=== PATIENT | male | born 1985 ===

== ENCOUNTER 2022-05-11 15:03 | Emergency (ER) | payer SELFPAY ==
[2022-05-11 15:28] VITALS: BP 120/75; PULSE 78; RESP 16; TEMP 36.8; O2SAT 98; BMI 24.5
--- NOTE | 2022-05-11 18:03 | W.ED.GENADLT ---
HPI - General Adult General: Chief complaint: Weakness Stated complaint: dizziness Time Seen by Provider: 05/11/22 17:48 History of Present Illness: Patient is a 36-year-old male with no significant past medical history presents to the emergency room for concerns of heat exhaustion. Patient was told to come to to the emergency room by his company for concerns of heat exhaustion. Patient tells me that 3 days ago he was in [place] celebrating with friends. However his car broke down and he was waiting for his car for the last 3 days. Patient reports decreased water intake and for the last 2 days has had weakness and fatigue. Earlier today, patient works at a [employer] and reports feeling fatigued and was told to come to the emergency room. Denies nausea/vomiting, fever/chill, chest pain, shortness of breath, abdominal pain, dysuria/hematuria/polyuria, diarrhea/melena/hematochezia. On arrival, patient tells me that he feels well right now. Patient tells me that he has been drinking water. Onset:4 days ago Duration:4 days Location:home Severity: moderate Associated symptoms: Reports malaise; Deny chest pain, dyspnea, nausea, rash, palpitations or vomiting Review of Systems Const: Reports: fatigue and malaise; Denies: fever(s) or chills Eyes: Denies: change in vision ENMT: Denies: mouth pain Card: Denies: chest pain or palpitations Resp: Denies: dyspnea or non-productive cough GI: Denies: abdominal pain, nausea, vomiting or diarrhea : Denies: dysuria Musc: Denies: extremity pain Skin/Breast: Denies: rash or new lesions Neuro: Denies: weakness in extremities Psych: Reports: other (Normal mood) Jed/Lymph: Denies: easy bruising PFSH ED PFSH: Medical History No pertinent past medical history Social History Smoking and tobacco status: current every day smoker Alcohol intake: current Substance/Drug Use: never Physical Exam Const: COMMON NORMALS: alert HENMT: COMMON NORMALS: atraumatic HEAD & SCALP: atraumatic MOUTH: moist mucous membranes not abnormal Eye: COMMON NORMALS: EOMs intact bilaterally and conjunctivae normal CONJUNCTIVA: Yes conjunctivae normal Neck/C-Spine: COMMON NORMALS: full ROM and supple Resp: COMMON NORMALS: normal respiratory effort and clear to auscultation bilaterally AUSCULTATION: clear to auscultation bilaterally Cardio: COMMON NORMALS: regular rate RATE: regular rate GI: COMMON NORMALS: Soft to palpation and non-tender PALPATION: Yes Soft to palpation Extremity: COMMON NORMALS: full ROM Neuro: SENSORIUM/ORIENTATION: Yes alert MOTOR EXAM: No Abnormal motor strength present and Other motor observations present (no focal motor deficits) Psych: COMMON NORMALS: speech normal SPEECH: Yes normal speech MOOD & AFFECT: Yes euthymic mood Course Vital Signs: Vital signs: Vital Signs Temperature 98.2 F 05/11/22 15:28 Pulse Rate 62 05/11/22 19:40 Respiratory Rate 17 05/11/22 19:40 Blood Pressure 120/75 05/11/22 15:28 Pulse Oximetry 100 05/11/22 19:40 [facility] - General Adult Medical Decision Making Patient is a 36-year-old male without any significant surgical history presents emergency room for concerns of heat cramps. On physical exam, patient is hemodynamically stable does not show any signs of dry mucous membrane. Patient received 2 L of fluids. Lab work-up did not show any signs of endorgan damage. Patient reports feeling symptomatically less fatigue. Patient elects to go home at this time. Disposition: Discharge. Patient counseled regarding diagnostic impression, treatment plan. Patient given ED strict return precautions to return for continuation, worsening, or development of new symptoms. Instructed to f/u w/ PCP regarding symptoms today. Patient verbalized understanding. Lab Data : 05/11/22 18:09 05/11/22 18:09 Laboratory Results WBC 10.6 10^3/uL (4.0-10.0) H 05/11/22 18:09 RBC 5.23 10^6/uL (4.1-5.3) 05/11/22 18:09 Hgb 14.4 g/dL (11.7-16.6) 05/11/22 18:09 Hct 44.5 % (42.0-52.0) 05/11/22 18:09 MCV 85.1 fl (80-94) 05/11/22 18:09 MCH 27.5 pg (28.0-34.0) L 05/11/22 18:09 MCHC 32.4 g/dL (30.0-36.0) 05/11/22 18:09 RDW 12.9 % (12.1-15.1) 05/11/22 18:09 Plt Count 199 10^3/cmm (130-400) 05/11/22 18:09 MPV 10.0 fL (7.4-10.4) 05/11/22 18:09 Neut % (Auto) 65.8 % 05/11/22 18:09 Lymph % (Auto) 24.9 % 05/11/22 18:09 [place] % (Auto) 8.3 % 05/11/22 18:09 Eos % (Auto) 0.1 % 05/11/22 18:09 Baso % (Auto) 0.6 % 05/11/22 18:09 Neut # (Auto) 6.94 10^3/uL (1.8-7.7) 05/11/22 18:09 Lymph # (Auto) 2.6 10^3/uL (0.8-4.8) 05/11/22 18:09 [place] # (Auto) 0.9 10^3/uL (0.2-0.9) 05/11/22 18:09 Eos # (Auto) 0.0 10^3/uL (0.0-0.8) 05/11/22 18:09 Baso # (Auto) 0.1 10^3/uL (0.0-0.1) 05/11/22 18:09 Nucleated RBC % (auto) 0 % 05/11/22 18:09 Nucleated RBCs # 0.0 /100WBC 05/11/22 18:09 Sodium 137 mmol/L (136-145) 05/11/22 18:09 Potassium 3.8 mmol/L (3.5-5.1) 05/11/22 18:09 Chloride 101 mmol/L (98-107) 05/11/22 18:09 Carbon Dioxide 27 mmol/L (22-29) 05/11/22 18:09 Anion Gap 12.8 (5-19) 05/11/22 18:09 BUN 15 mg/dL (6-20) 05/11/22 18:09 Creatinine 0.8 mg/dL (0.7-1.2) 05/11/22 18:09 GFR Calculation 110.0 mL/min (90-130) 05/11/22 18:09 Glucose 100 mg/dL (65-115) 05/11/22 18:09 Calculated Osmolality 285 mOsm/kg (285-295) 05/11/22 18:09 Calcium 8.6 mg/dL (8.5-10.5) 05/11/22 18:09 Total Bilirubin 0.5 mg/dL (0.15-1.2) 05/11/22 18:09 AST 34 U/L (0-40) 05/11/22 18:09 ALT 37 U/L (0-41) 05/11/22 18:09 Alkaline Phosphatase 88 IU/L (40-130) 05/11/22 18:09 Total Protein 6.9 g/dL (6.6-8.7) 05/11/22 18:09 Albumin 4.4 g/dL (3.5-5.2) 05/11/22 18:09 Globulin 2.5 g/dL (1.3-4.6) 05/11/22 18:09 Lipase 22 U/L (13-60) 05/11/22 18:09 Discharge Plan Discharge Patient Disposition: Home Clinical Impression: Fatigue, Cramp, heat Condition: Stable Discharge Orders: Discharge ED (Routine); Ordered 05/11/22 Ordered By: Erin Pereyra Discharge Diet: Advance as tolerated Discharge Activity: Increase activity as tolerated Patient Instructions: Heat Exhaustion (ED), Muscle Cramp (ED) Activity Restrictions/Additional Instructions: Please drink plenty of water. Come back to the emergency room have any new or concerning complaints. Stand Alone Forms: Work/School Release Coding Level of Care Code ED Vision Specialist for Kellyg Fwd Exam Comprehensive
[2022-05-11 18:17] LABS: Basophils # 0.1 10^3/uL (0.0-0.1); Basophils % 0.6 %; Eosinophils % 0.1 %; Hematocrit 44.5 % (42.0-52.0); Hemoglobin 14.4 g/dL (11.7-16.6); Lymphocytes # 2.6 10^3/uL (0.8-4.8); Lymphocytes % 24.9 %; Mean Corpuscular HGB Conc 32.4 g/dL (30.0-36.0); Mean Corpuscular Hemoglobin 27.5 pg (28.0-34.0); Mean Corpuscular Volume 85.1 fl (80-94); Monocytes # 0.9 10^3/uL (0.2-0.9); Monocytes % 8.3 %; Neutrophils # 6.94 10^3/uL (1.8-7.7); Neutrophils % 65.8 %; Nucleated Red Blood Cells % 0 %; Platelet Count 199 10^3/cmm (130-400); Red Blood Count 5.23 10^6/uL (4.1-5.3); Red Cell Distribution Width 12.9 % (12.1-15.1); White Blood Count 10.6 10^3/uL (4.0-10.0)
[2022-05-11] MEDS: sodium chloride 0.9% 1,000 ML 999 ML IV ×2 (18:23→18:57)
[2022-05-11 18:38] VITALS: PULSE 62; RESP 17; O2SAT 100
[2022-05-11 18:44] LABS: Alanine Aminotransferase 37 U/L (0-41); Albumin Level 4.4 g/dL (3.5-5.2); Alkaline Phosphatase 88 IU/L (40-130); Anion Gap 12.8 (5-19); Aspartate Amino Transferase 34 U/L (0-40); Blood Urea Nitrogen 15 mg/dL (6-20); Calcium 8.6 mg/dL (8.5-10.5); Carbon Dioxide 27 mmol/L (22-29); Chloride 101 mmol/L (98-107); Globulin 2.5 g/dL (1.3-4.6); Glucose 100 mg/dL (65-115); Lipase 22 U/L (13-60); Osmolality Calculated 285 mOsm/kg (285-295); Potassium 3.8 mmol/L (3.5-5.1); Sodium 137 mmol/L (136-145); Total Bilirubin 0.5 mg/dL (0.15-1.2); Total Protein 6.9 g/dL (6.6-8.7)
[2022-05-11 19:40] VITALS: PULSE 62; RESP 17; O2SAT 100
== END 2022-05-11 19:43 | disposition home or self-care (01) ==
PROVIDERS: Emergency Provider Emergency Medicine
DX: T67.2XXA Heat cramp, initial encounter (principal); X30.XXXA Exposure to excessive natural heat, initial encounter; R53.83 Other fatigue; F17.210 Nicotine dependence, cigarettes, uncomplicated
CPT/HCPCS: 80053; 83690; 85025; 96360; 99284; J7030

== ENCOUNTER 2025-06-11 12:50 | Emergency (ER) | payer OTHER, SELFPAY ==
--- NOTE | 2025-06-11 12:53 | W.ED.PSYCHS ---
HPI - Psych General: Chief Complaint: Psychiatric Symptoms Stated Complaint: 96 Hold Time Seen by Provider: 06/11/25 12:51 Source: patient Mode of arrival: ambulatory Limitations: no limitations History of Present Illness: 39-year-old male who states that he became upset today and had made suicidal statements in front of police. He states that he had his kids taken away from he is very upset and was depressed and did admit that he stated that he wanted to kill himself. He has previous psych history denies any worse improving factors. Associated symptoms: Reports depression and suicidal ideation Related Data Home Medications ?Medication ?Instructions ?Recorded ?Confirmed No Known Home Medications 06/11/25 06/11/25 Allergies Allergy/AdvReac Type Severity Reaction Status Date / Time No Known Allergies Allergy Verified 05/11/22 15:32 Review of Systems Const: Denies: fever(s), chills, body aches or change in appetite Eyes: Denies: blurry vision or eye discomfort ENMT: Denies: throat pain or dental pain Card: Denies: chest pain Resp: Denies: dyspnea GI: Denies: abdominal pain, nausea, vomiting or diarrhea Musc: Denies: neck pain or back pain Skin/Breast: Denies: rash Neuro: Denies: headache(s) Psych: Reports: depression and suicidal ideation [facility] ED PFSH: Medical History No pertinent past medical history Social History Smoking and tobacco/nicotine status: current every day tobacco/nicotine user Alcohol intake: current Substance/Drug Use: never Physical Exam Const: COMMON NORMALS: no acute distress, patient oriented x3 and healthy appearing HENMT: COMMON NORMALS: normocephalic and atraumatic HEAD & SCALP: normocephalic and atraumatic Eye: COMMON NORMALS: conjunctivae normal CONJUNCTIVA: Yes conjunctivae normal Neck/C-Spine: COMMON NORMALS: full ROM and supple Chest: COMMONS NORMALS: normal inspection of the chest Resp: COMMON NORMALS: normal respiratory effort Cardio: COMMON NORMALS: regular rate, regular rhythm and No murmurs present (Cardio) RATE: regular rate RHYTHM: regular rhythm GI: COMMON NORMALS: Normal to inspection, nondistended, normoactive bowel sounds present, Soft to palpation, non-tender and no masses PALPATION: Yes Soft to palpation Extremity: COMMON NORMALS: normal to inspection and full ROM Neuro: COMMON NORMALS: patient oriented x3, moves all extremities and no focal motor deficits Psych: COMMON NORMALS: mental status grossly normal, Normal thought process present and cooperative MOOD & AFFECT: Yes depressed mood THOUGHT PROCESS: Normal thought process present THOUGHT CONTENT: Yes Suicidality present Skin: COMMON NORMALS: no rashes or lesions noted and no wounds GENERAL SKIN EXAM: no rashes or lesions noted Course Vital Signs: Vital signs: Vital Signs Temperature 98.4 F 06/11/25 12:58 Pulse Rate 74 06/11/25 21:16 Respiratory Rate 18 06/11/25 12:58 Blood Pressure 109/76 06/11/25 21:16 Pulse Oximetry 97 06/11/25 21:16 Oxygen Delivery Me thod Room Air 06/11/25 21:16 [facility] - Psych Medical Decision Making Patient presents for suicidal ideation under 96-hour hold patient's care transferred to Dr. Holliday have to transfer patient due to his being in the psych agarwal here he has been stable here and medically Medical Records I reviewed the patient's medical records. Lab Data I reviewed the patient's lab results. 06/11/25 13:07 06/11/25 13:07 Laboratory Results WBC 11.89 10^3/uL (3.29-11.43) H 06/11/25 13:07 RBC 5.36 10^6/uL (3.85-5.65) 06/11/25 13:07 Hgb 15.00 g/dL (11.27-16.99) 06/11/25 13:07 Hct 44.9 % (37-53) 06/11/25 13:07 MCV 83.8 fl (82-101) 06/11/25 13:07 MCH 28.0 pg (27-33) 06/11/25 13:07 MCHC 33.4 g/dL (30-55) 06/11/25 13:07 RDW 12.9 % (12.1-15.1) 06/11/25 13:07 Plt Count 221 10^3/cmm (157-399) 06/11/25 13:07 MPV 9.9 fL (7.4-10.4) 06/11/25 13:07 Neut % (Auto) 80.4 % 06/11/25 13:07 Lymph % (Auto) 11.9 % 06/11/25 13:07 [place] % (Auto) 6.7 % 06/11/25 13:07 Eos % (Auto) 0.1 % 06/11/25 13:07 Baso % (Auto) 0.6 % 06/11/25 13:07 Neut # (Auto) 9.56 10^3/uL (1.8-7.7) H 06/11/25 13:07 Lymph # (Auto) 1.4 10^3/uL (0.8-4.8) 06/11/25 13:07 [place] # (Auto) 0.8 10^3/uL (0.2-0.9) 06/11/25 13:07 Eos # (Auto) 0.0 10^3/uL (0.0-0.8) 06/11/25 13:07 Baso # (Auto) 0.1 10^3/uL (0.0-0.1) 06/11/25 13:07 Nucleated RBC % (auto) 0 % 06/11/25 13:07 Nucleated RBCs # 0.0 /100WBC 06/11/25 13:07 Sodium 136 mmol/L (136-145) 06/11/25 13:07 Potassium 3.9 mmol/L (3.5-5.1) 06/11/25 13:07 Chloride 102 mmol/L (98-107) 06/11/25 13:07 Carbon Dioxide 23 mmol/L (22-29) 06/11/25 13:07 Anion Gap 14.9 (5-19) 06/11/25 13:07 BUN 16 mg/dL (6-20) 06/11/25 13:07 Creatinine 0.8 mg/dL (0.7-1.2) 06/11/25 13:07 GFR Calculation 108.2 mL/min (90-130) 06/11/25 13:07 Glucose 96 mg/dL (65-115) 06/11/25 13:07 Calculated Osmolality 283 mOsm/kg (285-295) L 06/11/25 13:07 Calcium 8.9 mg/dL (8.5-10.5) 06/11/25 13:07 Total Bilirubin 0.7 mg/dL (0.15-1.2) 06/11/25 13:07 AST 20 U/L (0-40) 06/11/25 13:07 ALT 20 U/L (0-41) 06/11/25 13:07 Alkaline Phosphatase 95 U/L (40-130) 06/11/25 13:07 Total Protein 7.1 g/dL (6.6-8.7) 06/11/25 13:07 Albumin 4.3 g/dL (3.5-5.2) 06/11/25 13:07 Globulin 2.8 g/dL (1.3-4.6) 06/11/25 13:07 Salicylates < 0.3 mg/dL (3-10) L 06/11/25 13:07 Urine Opiates Screen Negative ng/mL (Negative) 06/11/25 13:20 Acetaminophen < 5.0 ug/mL (10-30) L 06/11/25 13:07 Ur Barbiturates Screen Negative ng/mL (Negative) 06/11/25 13:20 Ur Phencyclidine Scrn Negative ng/mL (Negative) 06/11/25 13:20 Ur Amphetamines Screen Positive ng/mL (Negative) H 06/11/25 13:20 U Benzodiazepines Scrn Negative ng/mL (Negative) 06/11/25 13:20 Urine Cocaine Screen Negative ng/mL (Negative) 06/11/25 13:20 U Marijuana (THC) Screen Positive ng/mL (Negative) H 06/11/25 13:20 Ethyl Alcohol < 10 mg/dL (0-10) 06/11/25 13:07 Influenza A (PCR) Negative (Negative) 06/11/25 13:36 Influenza Type B (PCR) Negative (Negative) 06/11/25 13:36 RSV (PCR) Negative (Negative) 06/11/25 13:36 SARS-CoV-2 (PCR) Negative (Negative) 06/11/25 13:36 All radiology interpretation(s) finalized by discharge EKG Data EKG 1: I personally reviewed and interpreted this EKG as follows: EKG interpretation date: 06/11/25 EKG interpretation time: 13:51 Interpretation: nsr hr [address] elevation qrs 91 qtc 392 Discharge Plan Discharge Patient Disposition: Xfer Short-Term Hosp Clinical Impression: Suicidal ideation Condition: Stable Print Language: Tamazight Coding Level of Care Code ED Tie Inspector for Anshul Ramos
[2025-06-11 12:58] VITALS: BP 122/83; PULSE 80; RESP 18; TEMP 36.9; O2SAT 98
[2025-06-11 13:13] LABS: Hematocrit 44.9 % (37-53); Hemoglobin 15.00 g/dL (11.27-16.99); Mean Corpuscular HGB Conc 33.4 g/dL (30-55); Mean Corpuscular Hemoglobin 28.0 pg (27-33); Mean Corpuscular Volume 83.8 fl (82-101); Nucleated Red Blood Cells % 0 %; Platelet Count 221 10^3/cmm (157-399); Red Blood Count 5.36 10^6/uL (3.85-5.65); White Blood Count 11.89 10^3/uL (3.29-11.43)
--- NOTE | 2025-06-11 13:21 | ECG_ITS ---
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 Measurements Intervals [place] Rate: 70 P: 74 CT: 150 QRS: 85 QRSD: 91 T: 62 QT: 371 QTc: 401 Interpretive Statements SINUS RHYTHM INCOMPLETE RIGHT BUNDLE BRANCH BLOCK [90+ ms QRS DURATION, TERMINAL R IN V1/V2, 40+ ms S IN I/aVL/V4/V5/V6] No previous ECG available for comparison Electronically Signed On 06-14-2025 08:52:09 CDT by Rolando Lindsay M.D. [email or web address]
--- NOTE | 2025-06-11 13:26 | PC.NURSE ---
Involuntary 96 hour hold rights read and reviewed with patient. Patient verbalized understandings and copy of rights given to patient.
[2025-06-11 13:29] LABS: Alanine Aminotransferase 20 U/L (0-41); Albumin Level 4.3 g/dL (3.5-5.2); Alkaline Phosphatase 95 U/L (40-130); Anion Gap 14.9 (5-19); Aspartate Amino Transferase 20 U/L (0-40); Blood Urea Nitrogen 16 mg/dL (6-20); Calcium 8.9 mg/dL (8.5-10.5); Carbon Dioxide 23 mmol/L (22-29); Chloride 102 mmol/L (98-107); Creatinine Clr Calc Pharmacy 124.8515; Globulin 2.8 g/dL (1.3-4.6); Glucose 96 mg/dL (65-115); Osmolality Calculated 283 mOsm/kg (285-295); Potassium 3.9 mmol/L (3.5-5.1); Sodium 136 mmol/L (136-145); Total Protein 7.1 g/dL (6.6-8.7)
[2025-06-11 13:33] LABS: Acetaminophen < 5.0 ug/mL (10-30); Alcohol Level < 10 mg/dL (0-10); Salicylate < 0.3 mg/dL (3-10)
[2025-06-11 13:42] LABS: PCP Screen Urine Negative (Negative)
[2025-06-11 14:25] LABS: Respiratory Syncytial Virus Ce NEGATIVE (Negative); SARS-CoV-2 PCR NEGATIVE (Negative)
[2025-06-11 21:16] VITALS: BP 109/76; PULSE 74; O2SAT 97
[2025-06-12 02:09] VITALS: BP 120/82; PULSE 83; O2SAT 98
[2025-06-12 07:11] VITALS: PULSE 80; RESP 18; O2SAT 99
[2025-06-12 13:39] VITALS: BP 115/73; PULSE 68; RESP 18; O2SAT 97
== END 2025-06-12 16:08 | disposition short-term general hospital (02) ==
PROVIDERS: Emergency Provider Emergency Medicine
DX: R45.851 Suicidal ideations (principal); Z11.52 Encounter for screening for COVID-19; Z72.0 Tobacco use
CPT/HCPCS: 36415; 80053; 80306; 80307; 85025; 87637; 93005; 99285

== ENCOUNTER 2025-07-11 17:04 | Emergency (ER) | payer OTHER, SELFPAY ==
[2025-07-11 17:34] VITALS: BP 139/88; PULSE 84; RESP 16; TEMP 36.9; O2SAT 98
--- NOTE | 2025-07-11 18:01 | ED_ITS ---
HPI - Dental/Oral 2 General: Chief complaint: Dental/Oral Stated complaint: L side face pain swelling Pain behind eyes Time Seen by Provider: 07/11/25 17:18 Source: patient Mode of arrival: ambulatory Limitations: no limitations History of Present Illness: Patient is a 39-year-old male presents to ED today with complaint of left-sided dental pain and facial swelling over the past several days. Patient states he knows he has bad teeth but cannot afford to see a dentist. Patient states he is not having any trouble swallowing or trouble breathing. No fevers. MD Complaint: tooth pain Onset (ago): day(s) Duration: constant Severity: moderate Relieving factors: nothing Exacerbating factors: nothing Context: history of dental caries and poor dental care Associated symptoms: Reports ear or mastoid pain; Denies fever(s) or odynophagia Treatment prior to arrival: none Related Data Previous Rx's ?Medication ?Instructions ?Recorded amoxicillin 500 mg capsule 500 mg PO TID 7 days #21 ca ps 07/11/25 Allergies Allergy/AdvReac Type Severity Reaction Status Date / Time No Known Allergies Allergy Verified 07/11/25 17:38 Review of Systems 2 Const: Denies: fever(s), chills, body aches, fatigue or malaise Eyes: Denies: change in vision, blurry vision, photophobia, floaters or seeing flashes ENMT: Reports: ear or mastoid pain and sinus pain; Denies: throat pain, odynophagia, oral sores, ear discharge, change in hearing, nasal discharge or nasal congestion Card: Denies: chest pain Resp: Denies: dyspnea GI: Denies: abdominal pain, nausea, vomiting or change in bowel habits Musc: Denies: neck pain Neuro: Denies: headache(s) PFSH ED 2 PFSH: Medical History Psychiatric care No pertinent past medical history Social History Smoking and tobacco/nicotine status: current every day tobacco/nicotine user Alcohol intake: current Substance/Drug Use: never Physical Exam 2 Const: COMMON NORMALS: no acute distress, average body habitus, no limitations, healthy appearing, alert and well nourished GENERAL APPEARANCE: cooperative HENMT: COMMON NORMALS: external ears normal, EAC's normal and TM's normal bilaterally FACE & SINUS: edema (no cellulitis/fluctuance) on the left E XTERNAL EAR: Yes external ears normal, Yes mastoids normal and Yes no periauricular adenopathy EXTERNAL AUDITORY CANAL: EAC's normal TYMPANIC MEMBRANE: TM's normal bilaterally MOUTH: Normal oral and palatal mucosa present, lip normal, tongue normal and Normal salivary glands and ducts present TEETH & GINGIVA: Yes caries and Yes poor dentition TEETH & GINGIVA IMAGES: 1. gingival swelling THROAT: posterior oropharynx normal and tonsils normal Eye: GENERAL EYE: appearance normal, both eyes and all related structures and normal light reflex DIRECT OPHTHALMOSCOPY: Yes normal light reflex Neck/C-Spine: COMMON NORMALS: full ROM GENERAL: Yes normal visual inspection, No anterior neck swelling and No submandibular swelling Resp: COMMON NORMALS: normal respiratory effort and clear to auscultation bilaterally AUSCULTATION: clear to auscultation bilaterally Cardio: COMMON NORMALS: regular rate and regular rhythm RATE: regular rate RHYTHM: regular rhythm Neuro: SENSORIUM/ORIENTATION: Yes alert Course 2 Vital Signs: Vital signs: Vital Signs Temperature 98.5 F 07/11/25 17:34 Pulse Rate 84 07/11/25 17:34 Respiratory Rate 16 07/11/25 17:34 Blood Pressure 139/88 07/11/25 17:34 Pulse Oximetry 98 07/11/25 17:34 MDM - Dental/Oral Medical Decision Making I do not appreciate any obvious drainable abscess. Patient was given IM antibiotics prior to discharge. He states he cannot afford a prescription as he has no money. We did try to contact inpatient pharmacy and they are not able to dispense any significant amount of medications. We did contact the pharmacist who stated they are not able to bill prescriptions to an ED visit any longer. I printed a [employer] coupon for Amoxicillin and gave patient money to fill his RX tomorrow at [facility]. Return precautions discussed. Differential Diagnosis Likely gingival abscess, dental caries, toothache and dental abscess No radiology studies performed this visit Discharge Plan Discharge Patient Disposition: Home Clinical Impression: Dental abscess, Dental caries Condition: Stable Prescriptions: New amoxicillin 500 mg capsule 500 mg PO TID 7 Days Qty: 21 0RF Discharge Orders: Discharge ED (Routine); Ordered 07/11/25 Ordered By: Kimberly Flynn Patient Instructions: Dental Caries (Cavities), Patient Portal & Wesley Instructions, Dental Abscess Print Language: Setswana Coding Level of Care Code ED Sorter Pricer for Anshul Ramos
[2025-07-11] MEDS: Clindamycin 150 MG/ML SDV 2mL 600 MG IM (18:34)
== END 2025-07-11 18:44 | disposition home or self-care (01) ==
PROVIDERS: Emergency Provider Physician Assistant
DX: K04.7 Periapical abscess without sinus (principal); K02.9 Dental caries, unspecified; Z72.0 Tobacco use
CPT/HCPCS: 99284; J0736

== ENCOUNTER 2025-08-15 12:56 | Outpatient (CLI) | payer OTHER, BC, MEDICAID, SELFPAY ==
--- NOTE | 2025-08-15 13:08 | XR_ITS ---
WS: [id number] Chest 2 views, 08/15/2025 Clinical Data: A15.8 Comparison: None. Findings: No nodules, masses or effusions are seen. The heart is normal. The pulmonary vascularity is not increased. No pneumonia or pneumothorax is seen. There is minimal atelectasis in the lingula of the left upper lobe. XR/XR chest 2V* [id number] Impression: Negative chest.
== END 2025-08-15 12:57 | disposition home or self-care (01) ==
LOC: RAD 13:01
PROVIDERS: Visit Provider Internal Medicine
DX: A15.8 Other respiratory tuberculosis (principal)
CPT/HCPCS: 71046

== ENCOUNTER 2025-09-10 16:07 | Emergency (ER) | payer OTHER, BC, MEDICAID, SELFPAY ==
--- NOTE | 2025-09-10 16:09 | XRR_ITS ---
PROCEDURE INFORMATION: Exam: XR Chest Exam date and time: 09/10/2025 4:54 PM Age: 39 years old Clinical indication: Other: Weakness TECHNIQUE: Imaging protocol: Radiologic exam of the chest. Views: 1 view. COMPARISON: CR XR chest 2V* [id number] 08/15/2025 1:23 PM FINDINGS: Lungs: Unremarkable. No consolidation. Pleural spaces: Unremarkable. No pleural effusion. No pneumothorax. Heart/Mediastinum: Unremarkable. No cardiomegaly. Bones/joints: Unremarkable. XR/XR chest 1V portable [id number] IMPRESSION: No acute findings.
[2025-09-10 16:11] VITALS: BP 150/88; PULSE 83; RESP 15; TEMP 36.7; O2SAT 98; BMI 30.3
[2025-09-10 17:32] LABS: Hematocrit 45.8 % (37-53); Hemoglobin 15.00 g/dL (11.27-16.99); Mean Corpuscular HGB Conc 32.8 g/dL (30-55); Mean Corpuscular Hemoglobin 27.5 pg (27-33); Mean Corpuscular Volume 83.9 fl (82-101); Nucleated Red Blood Cells % 0 %; Platelet Count 243 10^3/cmm (157-399); Red Blood Count 5.46 10^6/uL (3.85-5.65); White Blood Count 9.60 10^3/uL (3.29-11.43)
[2025-09-10 18:20] LABS: Alanine Aminotransferase 37 U/L (0-41); Albumin Level 4.4 g/dL (3.5-5.2); Alkaline Phosphatase 107 U/L (40-130); Anion Gap 15.2 (5-19); Aspartate Amino Transferase 28 U/L (0-40); Blood Urea Nitrogen 17 mg/dL (6-20); Calcium 9.1 mg/dL (8.5-10.5); Carbon Dioxide 24 mmol/L (22-29); Chloride 106 mmol/L (98-107); Globulin 3.1 g/dL (1.3-4.6); Glucose 91 mg/dL (65-115); Magnesium 2.3 mg/dL (1.7-2.3); Osmolality Calculated 293 mOsm/kg (285-295); Potassium 4.2 mmol/L (3.5-5.1); Sodium 141 mmol/L (136-145); Thyroid Stimulating Hormone 1.20 uIU/mL (0.27-4.20); Total Protein 7.5 g/dL (6.6-8.7)
--- NOTE | 2025-09-10 18:23 | CTR_ITS ---
PROCEDURE INFORMATION: Exam: CT Head Without Contrast Exam date and time: 09/10/2025 6:27 PM Age: 39 years old Clinical indication: Dizziness; Additional info: Dizzy, headache TECHNIQUE: Imaging protocol: Computed tomography of the head without contrast. Radiation optimization: All CT scans at this facility use at least one of these dose optimization techniques: automated exposure control; mA and/or kV adjustment per patient size (includes targeted exams where dose is matched to clinical indication); or iterative reconstruction. COMPARISON: No relevant prior studies available. RADIATION DOSE METRICS: Total DLP (mGy-cm): 1130.1 FINDINGS: Brain: No acute hemorrhage, edema, or mass effect. Cerebral ventricles: No hydrocephalus. Paranasal sinuses: Trace fluid/mucosal thickening right sphenoid sinus. The remaining visualized paranasal sinuses are clear. Mastoid air cells: Visualized mastoid air cells are well aerated. Bones: Unremarkable. No acute fracture. Soft tissues: Unremarkable. CT/CT head wo con* [id number] IMPRESSION: No acute hemorrhage, edema, or mass effect.
--- NOTE | 2025-09-10 18:24 | ECG_ITS ---
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 Measurements Intervals [place] Rate: 59 P: 62 IN: 166 QRS: 65 QRSD: 100 T: 55 QT: 371 QTc: 368 Interpretive Statements SINUS BRADYCARDIA INCOMPLETE RIGHT BUNDLE BRANCH BLOCK [90+ ms QRS DURATION, TERMINAL R IN V1/V2, 40+ ms S IN I/aVL/V4/V5/V6] TYPE 3 BRUGADA PATTERN (NON-DIAGNOSTIC) [COVED/SADDLEBACK ST ELEVATION > 0.1mV IN 2 OF V1-3] Compared to ECG 06/11/2025 13:51:43 ST (T wave) deviation now present Sinus rhythm no longer present Electronically Signed On 09-10-2025 23:52:29 EXTRACTIONS TECHNICIAN by Altaf Yadav M.D. [id number]
[2025-09-10 19:15] LABS: Glucose Urine UA Negative (Normal); Nitrate Urine Negative (Negative); Specific Gravity, Urine 1.013 (1.005-1.030)
[2025-09-10 19:20] LABS: Add Urine Microscopic? YES
--- NOTE | 2025-09-10 21:20 | W.ED.DIZZY ---
HPI - Dizziness General: Chief Complaint: Dizziness Stated Complaint: Dizzy Tired Time Seen by Provider: 09/10/25 18:15 Source: patient Mode of arrival: ambulatory Limitations: no limitations History of Present Illness: HPI Narrative: Patient is a 39-year-old male presents emergency department complaining of dizziness for the past week or so. Notes that this began after he started Vivitrol, as he recently got out of rehab. Also notes that he had a change to olanzapine recently, and takes other psychiatric medications. States that the symptoms are worse in the morning, and compares it to feeling hung over or that the room is spinning. Denies history of vertigo. No headaches, focal neurological deficit, visual changes, ear pain, fevers, nausea/vomiting, or any other symptoms at this time. His vitals are stable. MD elicited complaint: dizziness Onset (ago): day(s) Description: room spinning and other ( Hung over ) Context: change in medication and other (Worse in the morning) Associated symptoms: Denies chest pain, chills, headache(s), nausea, palpitations or vomiting Associated neuro symptoms: Deny numbness in extremities Related Data Previous Rx's ?Medication ?Instructions ?Recorded hydroxyzine HCl 25 mg tablet 50 mg (2 x 25 mg) PO .HS PRN 07/23/25 insomnia #60 tabs olanzapine 5 mg tablet 5 mg PO BID #60 tabs 07/23/25 Allergies Allergy/AdvReac Type Severity Reaction Status Date / Time No Known Allergies Allergy Verified 07/23/25 15:55 Review of Systems General: Reports: 10 or more systems reviewed and unremarkable except in HPI and below Const: Denies: fever(s), chills or fatigue Eyes: Denies: change in vision ENMT: Denies: throat pain, ear or mastoid pain or nasal discharge Card: Denies: chest pain, palpitations, swelling of feet/ankles or lightheadedness Resp: Denies: dyspnea, productive cough or wheezing GI: Denies: abdominal pain, nausea, vomiting, diarrhea or constipation : Denies: flank pain, difficulty urinating, dysuria or urinary frequency Musc: Denies: neck pain, back pain or joint pain Skin/Breast: Denies: rash Neuro: Reports: dizziness; Denies: headache(s), numbness in extremities or weakness in extremities PFS ED PFSH: Medical History Psychiatric care No pertinent past medical history Social History Smoking and tobacco/nicotine status: current every day tobacco/nicotine user Alcohol intake: current Substance/Drug Use: never Physical Exam Const: COMMON NORMALS: no acute distress, patient oriented x3 and no limitations GENERAL APPEARANCE: cooperative, comfortable and well developed ORIENTATION/CONSCIOUSNESS: Yes awake, Yes oriented to person, Yes oriented to place and Yes oriented to time HENMT: COMMON NORMALS: normocephalic, atraumatic and hearing grossly normal bilaterally HEAD & SCALP: normocephalic and atraumatic Eye: COMMON NORMALS: Equal, round and reactive pupils present, EOMs intact bilaterally and conjunctivae normal CONJUNCTIVA: Yes conjunctivae normal PUPIL: Yes Equal, round and reactive pupils present Neck/C-Spine: COMMON NORMALS: full ROM, supple and no JVD Resp: COMMON NORMALS: normal respiratory effort, No retractions, No use of accessory muscles and clear to auscultation bilaterally AUSCULTATION: clear to auscultation bilaterally Cardio: COMMON NORMALS: no JVD, regular rate, regular rhythm, No clicks present (Cardio), No murmurs present (Cardio) and No rub (Cardio) RATE: regular rate RHYTHM: regular rhythm Extremity: COMMON NORMALS: normal to inspection, full ROM and capillary refill normal Neuro: COMMON NORMALS: patient oriented x3, CN's II-XII intact bilaterally, moves all extremities, no focal motor deficits and no sensory deficits noted SENSORIUM/ORIENTATION: Yes oriented to person, Yes oriented to place and Yes oriented to time Skin: COMMON NORMALS: no rashes or lesions noted GENERAL SKIN EXAM: no rashes or lesions noted Course Vital Signs: Vital signs: Vital Signs Temperature 98.0 F 09/10/25 16:11 Pulse Rate 83 09/10/25 16:11 Respiratory Rate 15 09/10/25 16:11 Blood Pressure 150/88 09/10/25 16:11 Pulse Oximetry 98 09/10/25 16:11 Oxygen Delivery Me thod Room Air 09/10/25 16:11 MDM - Dizziness Medical Decision Making Patient presented with dizziness has been going on since he began Vivitrol, after being released from rehab. He had reported that the dizziness felt like being hung over or that the room was spinning, though denies any history of vertigo and has no ear pain. No neurological deficits on exam. His lab work is all reassuring, head CT negative, chest x-ray negative, EKG unremarkable. 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 Overall stable for discharge home he is to follow-up with his prescriber to discuss his medications and any changes that need to be made, and told to return with any new or worsening. Lab Data 09/10/25 17:19 09/10/25 17:19 Radiology Impressions Chest X-Ray 09/10/25 16:09 IMPRESSION: No acute findings. Head CT 09/10/25 18:23 IMPRESSION: No acute hemorrhage, edema, or mass effect. Laboratory Results WBC 9.60 10^3/uL (3.29-11.43) 09/10/25 17:19 RBC 5.46 10^6/uL (3.85-5.65) 09/10/25 17:19 Hgb 15.00 g/dL (11.27-16.99) 09/10/25 17:19 Hct 45.8 % (37-53) 09/10/25 17:19 MCV 83.9 fl (82-101) 09/10/25 17:19 MCH 27.5 pg (27-33) 09/10/25 17:19 MCHC 32.8 g/dL (30-55) 09/10/25 17:19 RDW 13.2 % (12.1-15.1) 09/10/25 17:19 Plt Count 243 10^3/cmm (157-399) 09/10/25 17:19 MPV 9.2 fL (7.4-10.4) 09/10/25 17: Neut % (Auto) 53.6 % 09/10/25 17:19 Lymph % (Auto) 36.8 % 09/10/25 17:19 [place] % (Auto) 8.2 % 09/10/25 17: Eos % (Auto) 0.0 % 09/10/25 17: Baso % (Auto) 0.9 % 09/10/25 17:19 Neut # (Auto) 5.14 10^3/uL (1.8-7.7) 09/10/25 17:19 Lymph # (Auto) 3.5 10^3/uL (0.8-4.8) 09/10/25 17:19 [place] # (Auto) 0.8 10^3/uL (0.2-0.9) 09/10/25 17:19 Eos # (Auto) 0.0 10^3/uL (0.0-0.8) 09/10/25 17:19 Baso # (Auto) 0.1 10^3/uL (0.0-0.1) 09/10/25 17:19 Nucleated RBC % (auto) 0 % 09/10/25 17:19 Nucleated RBCs # 0.0 /100WBC 09/10/25 17:19 Sodium 141 mmol/L (136-145) 09/10/25 17:19 Potassium 4.2 mmol/L (3.5-5.1) 09/10/25 17:19 Chloride 106 mmol/L (98-107) 09/10/25 17:19 Carbon Dioxide 24 mmol/L (22-29) 09/10/25 17:19 Anion Gap 15.2 (5-19) 09/10/25 17:19 BUN 17 mg/dL (6-20) 09/10/25 17:19 Creatinine 1.0 mg/dL (0.7-1.2) 09/10/25 17:19 GFR Calculation 83.6 mL/min (90-130) L 09/10/25 17:19 Glucose 91 mg/dL (65-115) 09/10/25 17:19 Calculated Osmolality 293 mOsm/kg (285-295) 09/10/25 17:19 Calcium 9.1 mg/dL (8.5-10.5) 09/10/25 17:19 Magnesium 2.3 mg/dL (1.7-2.3) 09/10/25 17:19 Total Bilirubin 0.3 mg/dL (0.15-1.2) 09/10/25 17:19 AST 28 U/L (0-40) 09/10/25 17:19 ALT 37 U/L (0-41) 09/10/25 17:19 Alkaline Phosphatase 107 U/L (40-130) 09/10/25 17:19 Total Protein 7.5 g/dL (6.6-8.7) 09/10/25 17:19 Albumin 4.4 g/dL (3.5-5.2) 09/10/25 17:19 Globulin 3.1 g/dL (1.3-4.6) 09/10/25 17:19 TSH 1.20 uIU/mL (0.27-4.20) 09/10/25 17:19 Urine Color Yellow (Yellow) 09/10/25 18:57 Urine Appearance Clear (CLEAR) 09/10/25 18:57 Urine pH 6.5 (5-7) 09/10/25 18:57 Ur Specific [place] 1.013 (1.005-1.030) 09/10/25 18:57 Urine Protein Negative (Negative) 09/10/25 18:57 Urine Glucose (UA) Negative (Normal) 09/10/25 18:57 Urine Ketones Negative (Negative) 09/10/25 18:57 Urine Blood Negative (Negative) 09/10/25 18:57 Urine Nitrate Negative (Negative) 09/10/25 18:57 Urine Bilirubin Negative (Negative) 09/10/25 18:57 Urine Urobilinogen 1.0 mg/dL (Negative) 09/10/25 18:57 Ur Leukocyte Esterase Negative (Negative) 09/10/25 18:57 Urine RBC 0-2 /hpf (0-2) 09/10/25 18:57 Urine WBC 0-5 /hpf (0-5) 09/10/25 18:57 Ur Squamous Epith Cells 0-5 /hpf (0-5) 09/10/25 18:57 Amorphous Sediment Not Reportable 09/10/25 18:57 Urine Bacteria None seen /hpf (NONE) 09/10/25 18:57 Hyaline Casts 0-4 /lpf H 09/10/25 18:57 All radiology interpretation(s) finalized by discharge Discharge Plan Discharge Patient Disposition: Home Clinical Impression: Adverse reaction to drug Condition: Stable Prescriptions: No Action olanzapine 5 mg tablet 5 mg PO BID Qty: 60 1RF hydroxyzine HCl 25 mg tablet 50 mg PO .HS PRN (Reason: insomnia) Qty: 60 1RF Discharge Orders: Discharge ED (Routine); Ordered 11/19/25 Ordered By: Raúl Peña Patient Instructions: Patient Portal & Wesley Instructions Activity Restrictions/Additional Instructions: Please continue to your home medications. Follow-up with your primary care in regards to your medications that you are taking and discussed possible side effects of dizziness that you have been experiencing. Your tests today in the emergency department were reassuring, please monitor your condition closely at home return with any new or worsening. Stand Alone Forms: Work/School Release Print Language: Sinhala Coding Level of Care Code ED Equipment Service Technician for Anshul Ramos
== END 2025-09-10 19:13 | disposition home or self-care (01) ==
PROVIDERS: Emergency Medicine; Emergency Provider Physician Assistant
DX: T50.995A Adverse effect of other drugs, medicaments and biological substances, initial encounter (principal); X58.XXXA Exposure to other specified factors, initial encounter; Z72.0 Tobacco use
CPT/HCPCS: 36415; 70450; 71045; 80053; 81001; 83735; 84443; 85025; 93005; 99284; J8597